=== PATIENT | female | born 1990 | race Caucasian/White ===

== ENCOUNTER 2018-07-11 12:13 | Emergency (ER) | payer MEDICAID, OTHER ==
[2018-07-11 12:19] VITALS: BP 123/77
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
== END 2018-07-11 13:21 | disposition home or self-care (01) ==
DX: S01.81XD Laceration without foreign body of other part of head, subsequent encounter (principal); W19.XXXD Unspecified fall, subsequent encounter; Y92.239 Unspecified place in hospital as the place of occurrence of the external cause; Y93.9 Activity, unspecified; Y99.9 Unspecified external cause status